=== PATIENT | male | born 1990 | race Hispanic/Latino ===

== ENCOUNTER 2020-09-03 18:36 | Inpatient (IN) | payer SELFPAY ==
[2020-09-03 21:14] LABS: Hematocrit 45.4 % (39.6-49.0); MPV 8.2 fL (7.6-11.3); RBC Red Blood Cell Count 5.32 M/uL (4.33-5.43)
[2020-09-03 21:22] LABS: Protime INR 0.97
[2020-09-03 21:28] LABS: ALT/SGPT 112 U/L (12-78); AST/SGOT 56 U/L (15-37); Albumin 3.2 g/dL (3.4-5.0); Alkaline Phosphatase 109 U/L (45-117); BUN Blood Urea Nitrogen 7 mg/dL (7-18); Bicarbonate 25 mmol/L (21-32); Bilirubin Direct 13.2 mg/dL (0-0.2); Glucose Level 135 mg/dL (74-106); Lipase 236 U/L (73-393); Potassium 3.5 mmol/L (3.5-5.1); Protein, Total 7.1 g/dL (6.4-8.2); Sodium Level 136 mmol/L (136-145)
[2020-09-03 21:32] LABS: Bilirubin Total 15.5 mg/dL (0.2-1.0)
[2020-09-03 22:44] LABS: Urine Blood Negative (Negative); Urine Glucose Negative (Negative); Urine Protein Negative (Negative)
[2020-09-03 22:55] LABS: Blood Morphology Comment NOTED (NOT SEEN); Platelet Estimate ADEQ; Target Cells 1+
--- NOTE | 2020-09-03 23:23 | ER ---
Nurse's Notes [facility] Name: Leighton Beasley Jr Age: 30 yrs Sex: Male : 1990 Arrival Date: 09/03/2020 Time: 18:39 Bed 8 Private MD: Diagnosis: Unspecified jaundice Presentation: 09/03 18:59 Chief complaint: Patient states: Noticed yellow eyes for 1 week. Yellow skin for 4 ll1 days. No abd pain, but some nausea. States he drinks a lot on the weekends. Recently on steroids, testerone, estrogen blockers, but stopped them after turning yellow. Coronavirus screen: Client denies travel out of the [place] in the last 14 days. At this time, the client does not indicate any symptoms associated with coronavirus-19. Ebola Screen: Patient denies travel to an Ebola-affected area in the 21 days before illness onset. Initial Sepsis Screen: Does the patient meet any 2 criteria? HR > 90 bpm. No. Patient's initial sepsis screen is negative. Does the patient have a suspected source of infection? No. Patient's initial sepsis screen is negative. Risk Assessment: Do you want to hurt yourself or someone else? Patient reports no desire to harm self or others. Onset of symptoms was August 27, 2020. 18:59 Method Of Arrival: Ambulatory ll1 18:59 Acuity: BROOKE 3 ll1 Historical: - Allergies: 19:03 No Known Allergies; ll1 - PMHx: 19:03 None; ll1 - PSHx: 19:03 None; ll1 - Immunization history:: Flu vaccine is not up to date. - Social history:: Smoking status: Patient denies any tobacco usage or history of. - Family history:: not pertinent. - Hospitalizations: : No recent hospitalization is reported. Screenin:55 Abuse screen: Denies threats or abuse. Nutritional screening: No deficits noted. ea Tuberculosis screening: No symptoms or risk factors identified. Fall Risk None identified. Assessment: 21:12 General: Appears comfortable, Behavior is calm, cooperative. Pain: Denies pain. Neuro: rv Level of Consciousness is awake, alert, obeys commands, Oriented to person, place, time, situation. Cardiovascular: Patient's skin is warm and dry. Respiratory: Airway is patent Respiratory effort is even, unlabored. Derm: Skin is jaundiced. 22:31 Reassessment: Patient and/or family updated on plan of care and expected duration. Pain ea level reassessed. Pt alert and oriented x 3. Respirations even and unlabored, chest expansions even and symmetrical. 22:50 Reassessment: Pt taken to CT. ea Vital Signs: 18:59 BP 165 / 105; Pulse 99; Resp 17; Temp 98.6; Pulse Ox 99% ; Weight 96.62 kg; Height 5 ll1 ft. 6 in. (167.64 cm); Pain 0/10; 22:50 BP 134 / 74; Pulse 89; Resp 18; Pulse Ox 98% ; ea 18:59 Body Mass Index 34.38 (96.62 kg, 167.64 cm) ll1 ED Course: 18:39 Patient arrived in ED. as 19:02 Triage completed. ll1 19:03 Arm band placed on. ll1 20:45 Low Gallegos MD is Attending Physician. rn 20:55 Alda Hawkins RN is Primary Nurse. ea 20:55 Patient has correct armband on for positive identification. Bed in low position. Call ea light in reach. Side rails up X 1. Adult w/ patient. 21:04 Inserted saline lock: 20 gauge in right antecubital area, using aseptic technique. rv Blood collected. 21:04 Initial lab(s) drawn, by me, sent to lab. rv 23:01 CT Abd/Pelvis - IV Contrast Only In Process Unspecified. EDMS 23:22 Sunil Gomes DO is Hospitalizing Provider. rn 09/04 02:46 No provider procedures requiring assistance completed. IV is patent, with fluids ea infusing freely, Patient admitted, IV remains in place. Administered Medications: 09/03 21:11 Drug: NS 0.9% 1000 ml Route: IV; Rate: 1000 ml; Site: right antecubital; rv 09/04 02:48 Follow up: IV Status: Completed infusion; IV Intake: 1000ml ea Intake: 02:48 IV: 1000ml; Total: 1000ml. ea Outcome: 09/03 23:23 Decision to Hospitalize by Provider. rn 09/04 02:47 Admitted to Tele accompanied by tech, via wheelchair, room 401, Other sbar Report ea called to AREN OCHOA Condition: good Instructed on the need for admit. 02:51 Patient left the ED. ea Signatures: Dispatcher [employer] Nichole Anne Roman, MD MD rn Antunez, Elena RN RN Chapin Bolton RN RN rv Lewis, Lynsay RN RN ll1
--- NOTE | 2020-09-03 23:23 | EDPHYS ---
Physician Documentation [facility] Name: Leighton Beasley Jr Age: 30 yrs Sex: Male : 1990 Arrival Date: 09/03/2020 Time: 18:39 Bed 8 Private MD: ED Physician Low Gallegos HPI: 09/03 21:29 This 30 yrs old Male presents to ER via Ambulatory with complaints of Jaundice.rn 21:29 Reports taking anabolic steroids and estrogen meliza for weeks, noticed 1 week ago rn that eyes were turning yellow. No other complaints other than occasional nausea. Denies tylenol overdose. Reports drinks occasionally on weekends, sometimes large volume.. Onset: The symptoms/episode began/occurred 1 week(s) ago. Severity of symptoms: At their worst the symptoms were mild in the emergency department the symptoms are unchanged. The patient has not experienced similar symptoms in the past. The patient has not recently seen a physician. Historical: - Allergies: 19:03 No Known Allergies; ll1 - PMHx: 19:03 None; ll1 - PSHx: 19:03 None; ll1 - Immunization history:: Flu vaccine is not up to date. - Social history:: Smoking status: Patient denies any tobacco usage or history of. - Family history:: not pertinent. - Hospitalizations: : No recent hospitalization is reported. ROS: 21:29 Constitutional: Negative for fever, chills, and weight loss, Eyes: + jaundice Neck: rn Negative for injury, pain, and swelling, Cardiovascular: Negative for chest pain, palpitations, and edema, Respiratory: Negative for shortness of breath, cough, wheezing, and pleuritic chest pain, Abdomen/GI: Negative for abdominal pain, vomiting, diarrhea, and constipation, Back: Negative for injury and pain, : + dark urine MS/Extremity: Negative for injury and deformity, Skin: Negative for injury, rash, and discoloration, Neuro: Negative for headache, weakness, numbness, tingling, and seizure. Exam: 21:31 Constitutional: This is a well developed, well nourished patient who is awake, alert, rn and in no acute distress. Head/Face: Normocephalic, atraumatic. Eyes: + scleral icterus ENT: + jaundice under tongue Cardiovascular: Regular rate and rhythm. No pulse deficits. Respiratory: No increased work of breathing, no retractions or nasal flaring. Abdomen/GI: soft, non-tender Skin: Warm, dry, + jaundice head and torso, none on legs MS/ Extremity: Pulses equal, no cyanosis. Neurovascular intact. Full, normal range of motion. Equal circumference. Neuro: Awake and alert, GCS 15, oriented to person, place, time, and situation. Cranial nerves II-XII grossly intact. Motor strength 5/5 in all extremities. Sensory grossly intact. Cerebellar exam normal. Normal gait. Vital Signs: 18:59 BP 165 / 105; Pulse 99; Resp 17; Temp 98.6; Pulse Ox 99% ; Weight 96.62 kg; Height 5 ll1 ft. 6 in. (167.64 cm); Pain 0/10; 22:50 BP 134 / 74; Pulse 89; Resp 18; Pulse Ox 98% ; ea 18:59 Body Mass Index 34.38 (96.62 kg, 167.64 cm) ll1 MDM: 20:45 Patient medically screened. rn 23:21 Differential Diagnosis jaundice, drinking related vs anabolic steroids vs hepatitis 2/2 rn injections. Data reviewed: vital signs, nurses notes, lab test result(s), and as a result, I will admit patient. Counseling: I had a detailed discussion with the patient and/or guardian regarding: the historical points, exam findings, and any diagnostic results supporting the discharge/admit diagnosis, lab results, the need for further work-up and treatment in the hospital. Admission orders: after a detailed discussion of the patient's condition and case, the admit orders are written by me. ED course: Pt with total bili 15, likely 2/2 anabolic steroids, but also a drinker, stable vitals, stopped steroids 1 week ago, will admit for serial studies, return of hep panel, and GI consultation. . 09/03 20:56 Order name: Basic Metabolic Panel rn 09/03 20:56 Order name: CBC with Diff rn 09/03 20:56 Order name: Hepatic Function; Complete Time: 22:39 rn 09/03 20:56 Order name: Lipase; Complete Time: 22:40 rn 09/03 20:56 Order name: Hepatitis Panel rn 09/03 20:56 Order name: Acetaminophen; Complete Time: 22:40 rn 09/03 20:56 Order name: PT-INR; Complete Time: 22:40 rn 09/03 20:57 Order name: Basic Metabolic Panel; Complete Time: 22:40 [facility] 09/03 20:57 Order name: CBC with Automated Diff; Complete Time: 23:11 [facility] 09/03 21:57 Order name: Manual Differential; Complete Time: 23:11 [facility] 09/03 22:39 Order name: CT Abd/Pelvis - IV Contrast Only rn 09/03 22:43 Order name: Urine Dipstick-Ancillary; Complete Time: 22:54 [facility] 09/04 02:11 Order name: SARS-COV-[address] [facility] 09/03 20:56 Order name: IV Start; Complete Time: 21:11 rn 09/03 20:56 Order name: Labs collected and sent; Complete Time: 21:11 rn 09/03 21:31 Order name: Urine Dipstick-Ancillary (obtain specimen); Complete Time: 23:22 rn Administered Medications: 21:11 Drug: NS 0.9% 1000 ml Route: IV; Rate: 1000 ml; Site: right antecubital; 09/04 02:48 Follow up: IV Status: Completed infusion; IV Intake: 1000ml ea Disposition: 09/03/20 23:23 Hospitalization ordered by Sunil Gomes for Observation. Preliminary diagnosis is Unspecified jaundice. - Bed requested for Telemetry/MedSurg (Inpatient). - Status is Observation. ea - Condition is Stable. - Problem is new. - Symptoms are unchanged. Signatures: Dispatcher [employer] [facility] Kathie Gutierres RN RN mw Nieto, Roman, MD MD rn Antunez, Elena RN Chapin Gallardo ea, RN RN rv Lewis, Lynsay RN RN ll1 Corrections: (The following items were deleted from the chart) 09/03 21:31 21:29 Constitutional: Negative for fever, chills, and weight loss, Eyes: + jaundice rn Neck: Negative for injury, pain, and swelling, Cardiovascular: Negative for chest pain, palpitations, and edema, Respiratory: Negative for shortness of breath, cough, wheezing, and pleuritic chest pain, Abdomen/GI: Negative for abdominal pain, vomiting, diarrhea, and constipation, Back: Negative for injury and pain, MS/Extremity: Negative for injury and deformity, Skin: Negative for injury, rash, and discoloration, Neuro: Negative for headache, weakness, numbness, tingling, and seizure, rn 09/04 00:46 09/03 23:58 CORONAVIRUS+MR.LAB.BRZ ordered. EDMS EDMS 09/04 02:16 09/03 23:23 Hospitalization Ordered by Sunil Gomes DO for Observation. Preliminary ea diagnosis is Unspecified jaundice. Bed requested for Telemetry/MedSurg (observation). Status is Observation. Condition is Stable. Problem is new. Symptoms are unchanged. rn 09/04 02:32 02:16 09/03/2020 23:23 Hospitalization Ordered by Sunil Gomes DO for Observation. mw Preliminary diagnosis is Unspecified jaundice. Bed requested for [facility] ER HOLD. Status is Observation. Condition is Stable. Problem is new. Symptoms are unchanged. ea 02:51 02:32 09/03/2020 23:23 Hospitalization Ordered by Sunil Gomes DO for Observation. ea Preliminary diagnosis is Unspecified jaundice. Bed requested for Telemetry/MedSurg (Inpatient). Status is Observation. Condition is Stable. Problem is new. Symptoms are unchanged. mw
[2020-09-04] MEDS: NA CHLORIDE 0.9% 1,000 ML IV SCH ×3 (02:14→14:20)
[2020-09-04] MEDS ORDERED: ONDANSETRON 4 MG/2 ML VIAL IV PRN (02:14)
--- NOTE | 2020-09-04 02:36 | P.HP ---
Certification for Inpatient Patient admitted to: Inpatient With expected LOS: >2 Midnights Patient will require the following post-hospital care: None Practitioner: I am a practitioner with admitting privileges, knowledge of patient current condition, hospital course, and medical plan of care. Services: Services provided to patient in accordance with Admission requirements found in Title 42 Section 412.3 of the Code of Federal Regulations Patient History Date of Service: 09/04/20 Reason for admission: Jaundice, liver injury History of Present Illness: 30-year-old otherwise healthy male presents emergency department for jaundice. Patient reports that he noticed discoloration of his sclera and skin approximately 1 week prior. Patient does admit to using anabolic steroids for the last approximately 6 weeks prior to quitting 1 week ago. Patient admits to drinking on the weekends approximately 7 beers per day denies IV drug use or other risk factors for hepatitis. Evaluation in the emergency department significant for mild elevation in AST/ALT 56 and 112 respectively T bili significantly elevated 15.5 d bili 13.2 alk-phos 109 CBC within normal limits INR 0.97. CT abdomen pelvis negative for any acute findings. ED provider wishes to admit for further evaluation and management. 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 - Family History Family History: Reviewed- Non-Contributory - Social History Smoking Status: Never smoker Alcohol use: Yes CD- Drugs: No Caffeine use: Yes Place of Residence: Home Review of Systems 10-point ROS is otherwise unremarkable Gastrointestinal: Other (GERD) Integumentary: Jaundice, As per HPI Physical Examination - Physical Exam General: Alert, In no apparent distress HEENT: Atraumatic, PERRLA, Other (Mucous membranes pale), Scleral icterus Neck: Supple, 2+ carotid pulse no bruit, No LAD Respiratory: Clear to auscultation bilaterally, Normal air movement Cardiovascular: Regular rate/rhythm, Normal S1 S2 Gastrointestinal: Normal bowel sounds, No tenderness Musculoskeletal: No tenderness Integumentary: No rashes, Other (Skin appears jaundiced) Neurological: Normal gait, Normal speech, Normal strength at 5/5 x4 extr, Normal tone, Normal affect Lymphatics: No axilla or inguinal lymphadenopathy - Studies Laboratory Data (last 24 hrs) 09/03/20 21:04: PT 11.1, INR 0.97 09/03/20 21:04: WBC 7.50, Hgb 15.7, Hct 45.4, Plt Count 342 09/03/20 21:04: Sodium 136, Potassium 3.5, BUN 7, Creatinine 1.06, Glucose 135 H, Total Bilirubin 15.5 H*, AST 56 H, ALT 112 H, Alkaline Phosphatase 109, Lipase 236 Assessment and Plan - Plan Assessment Liver injury, jaundice likely secondary to anabolic steroid use Plan Liver injury, jaundice likely secondary to anabolic steroid use: CT abdomen pelvis without acute findings, no fever, elevated blood cell count. Will obtain right upper quadrant ultrasound for evaluation of gallbladder/liver. Hepatitis/HIV panel sent off. Patient instructed to attempt to obtain more information about the type of anabolic steroids that he was taking, does report that he is taking testosterone, estrogen blockers and other unknown medications for approximately 6 weeks and reports that the jaundice began approximately 1 week ago. Gastroenterology consulted, will repeat CMP, INR levels. DVT prophylaxis with Lovenox. Appreciate further input from GI. Discharge Plan: Home Plan to discharge in: 48 Hours - Advance Directives Does patient have a Living Will: No Does patient have a Durable POA for Healthcare: No - Code Status/Comfort Care Code Status Assessed: Yes (Full code) Critical Care: No Time Spent Managing Pts Care (In Minutes): 55
[2020-09-04] MEDS ORDERED: NA CHLORIDE 0.9% 1,000 ML ONE (02:39)
[2020-09-04 02:47] VITALS: O2SAT 99
[2020-09-04 03:20] VITALS: BMI 34.3
[2020-09-04 06:44] LABS: Protime INR 0.97
[2020-09-04 07:07] LABS: ALT/SGPT 99 U/L (12-78); AST/SGOT 50 U/L (15-37); Albumin 2.7 g/dL (3.4-5.0); Alkaline Phosphatase 101 U/L (45-117); BUN Blood Urea Nitrogen 5 mg/dL (7-18); Bicarbonate 26 mmol/L (21-32); Glucose Level 95 mg/dL (74-106); HDL Cholesterol 8 mg/dL (40-60); Magnesium 2.6 mg/dL (1.8-2.4); Protein, Total 6.3 g/dL (6.4-8.2); Sodium Level 138 mmol/L (136-145)
[2020-09-04 07:10] LABS: Bilirubin Total 14.5 mg/dL (0.2-1.0)
[2020-09-04 07:12] LABS: MPV 8.6 fL (7.6-11.3); RBC Red Blood Cell Count 5.04 M/uL (4.33-5.43)
[2020-09-04 07:23] LABS: LDL, Direct 227 mg/dL (100-129)
[2020-09-04] MEDS ORDERED: ENOXAPARIN 40 MG/0.4 ML SQ SCH (09:00)
[2020-09-04 09:19] LABS: Anisocytosis SLIGHT; Blood Morphology Comment NOTED (NOT SEEN); Platelet Estimate ADEQ; Platelets, Giant PRESENT; Poikilocytosis SLIGHT
--- NOTE | 2020-09-04 09:20 | RAD REPORT ---
EXAM DESCRIPTION: US - Abdomen Exam Limited - 09/04/2020 8:50 am CLINICAL HISTORY: Eval Liver/gallbladder, jaundice COMPARISON: Abdomen Pelvis W Contrast dated 09/03/2020 FINDINGS: A few punctate echogenic nonshadowing foci are seen along the gallbladder wall believed to be polyps rather than adherent stones or sludge. No mobile gallstones confirmed. Gallbladder wall is thickened. The gallbladder is not fully distended which may account focal wall thickening. No perich olecystic fluid. Suspected polyps are under 5 mm in size. No common duct stone or biliary tree dilatation identified. Partially imaged liver is 15 cm in size. Spleen is 12 cm. Liver and spleen parenchyma is not fully as sessed on this study. IMPRESSION: Contracted gallbladder shows wall thickening that may be artifact of contraction or an i ndication of chronic gallbladder disease. Punctate echogenic foci along the wall are believed to be small polyps. No duct stone or biliary tree dilatation.
--- NOTE | 2020-09-04 13:18 | P.DS ---
Admission Date: 09/04/20 Discharge Date: 09/04/20 Primary Care Provider: none Disposition: ROUTINE DISCHARGE Discharge Condition: GOOD Reason for Admission: Jaundice, liver injury Consultations: GI-Dr. Aaron Procedures: COVID: Negative CT scan: Unremarkable. ABUS: FINDINGS: A few punctate echogenic nonshadowing foci are seen along the gallbladder wall believed to be polyps rather than adherent stones or sludge. No mobile gallstones confirmed. Gallbladder wall is thickened. The gallbladder is not fully distended which may account focal wall thickening. No pericholecystic fluid. Suspected polyps are under 5 mm in size. No common duct stone or biliary tree dilatation identified. Partially imaged liver is 15 cm in size. Spleen is 12 cm. Liver and spleen parenchyma is not fully assessed on this study. IMPRESSION: Contracted gallbladder shows wall thickening that may be artifact of contraction or an indication of chronic gallbladder disease. Punctate echogenic foci along the wall are believed to be small polyps. No duct stone or biliary tree dilatation. MRI of AB: MRCP: Medical Problem List: Painless jaundice with elevated liver function likely secondary to anabolic steroid use Mixed hyperlipidemia Brief History of Present Illness: 30-year-old otherwise healthy male presents emergency department for painless jaundice. Patient reports that he noticed discoloration of his sclera and skin approximately 1 week prior. Patient does admit to using anabolic steroids for the last approximately 6 weeks prior to quitting 1 week ago. Patient admits to drinking on the weekends approximately 7 beers per day denies IV drug use or other risk factors for hepatitis. Evaluation in the emergency department significant for mild elevation in AST/ALT 56 and 112 respectively T bili significantly elevated 15.5 d bili 13.2 alk-phos 109 CBC within normal limits INR 0.97. CT abdomen pelvis negative for any acute findings. Patient ad mitted for further evaluation and treatment. Hospital Course: Patient presented with painless jaundice. Bilirubin elevated with noted elevated liver function. This was likely secondary to anabolic steroid use. Patient had been using anabolic steroids over the past several weeks. He discontinued the steroid last week. Patient also found with mixed hyperlipidemia. CT abdomen unremarkable. Abdominal ultrasound also showed no evidence of obstructive biliary dysfunction. Case discussed in detail with GI. GI recommended MRI of abdomen and MRCP. Both unremarkable. No further intervention required. Patient will be discharged home. Recommend to recheck labCMP at least once a week to make sure that levels are slowly improving. Patient should follow-up with GI and establish care with a PCP to further monitor lab closely. Hepatitis panel, HIV panel pending at discharge. This can be followed up with PCP. Education on risks of using anabolic steroids pro vided. Education on hyperbilirubinemia also provided. Vital Signs/Physical Exam: Temp Pulse Resp BP Pulse Ox 98.1 F 104 H 18 156/89 H 100 09/04/20 12:00 09/04/20 12:00 09/04/20 12:00 09/04/20 12:00 09/04/20 12:00 General: Alert, In no apparent distress, Oriented x3, Cooperative HEENT: Atraumatic, Scleral icterus Neck: Supple Respiratory: Clear to auscultation bilaterally, Normal air movement Cardiovascular: Normal pulses, Regular rate/rhythm Gastrointestinal: Normal bowel sounds, No ascites, No tenderness, No masses, No rebound, No guarding Musculoskeletal: No erythema, No tenderness, No warmth Integumentary: No tenderness/swelling, Other (Patient appears jaundice) Neurological: Normal speech, Normal strength at 5/5 x4 extr, Normal tone, Normal affect Laboratory Data at Discharge: WBC 5.60 K/uL (4.3-10.9) D 09/04/20 06:01 Hgb 15.0 g/dL (13.6-17.9) 09/04/20 06:01 Hct 43.0 % (39.6-49.0) 09/04/20 06:01 Plt Count 342 K/uL (152-406) 09/04/20 06:01 PT 11.1 SECONDS (9.5-12.5) 09/04/20 06:01 INR 0.97 09/04/20 06:01 Sodium 138 mmol/L (136-145) 09/04/20 06:01 Potassium 4.0 mmol/L (3.5-5.1) 09/04/20 06:01 BUN 5 mg/dL (7-18) L 09/04/20 06:01 Creatinine 1.03 mg/dL (0.55-1.3) 09/04/20 06:01 Glucose 95 mg/dL (74-106) 09/04/20 06:01 Magnesium 2.6 mg/dL (1.8-2.4) H 09/04/20 06:01 Total Bilirubin 14.5 mg/dL (0.2-1.0) H* 09/04/20 06:01 AST 50 U/L (15-37) H 09/04/20 06:01 ALT 99 U/L (12-78) H 09/04/20 06:01 Alkaline Phosphatase 101 U/L (45-117) 09/04/20 06:01 Triglycerides 470 mg/dL (<150) H 09/04/20 06:01 Cholesterol 282 mg/dL (<200) H 09/04/20 06:01 LDL Cholesterol Direct 227 mg/dL (100-129) H 09/04/20 06:01 HDL Cholesterol 8 mg/dL (40-60) L 09/04/20 06:01 Cholesterol/HDL Ratio 35.25 09/04/20 06:01 Lipase 236 U/L (73-393) 09/03/20 21:04 Home Medications: NK [No Home Meds] 09/04/20 Physician Discharge Instructions: Patient presented with painless jaundice. Bilirubin elevated with noted elevated liver function. This was likely secondary to anabolic steroid use. Patient had been using anabolic steroids over the past several weeks. He discontinued the steroid last week. Patient also found with mixed hyperlipidemia. CT abdomen unremarkable. Abdominal ultrasound also showed no evidence of obstructive biliary dysfunction. Case discussed in detail with GI. GI recommended MRI of abdomen and MRCP. Both unremarkable. No further intervention required. Patient will be discharged home. Recommend to recheck labCMP at least once a week to make sure that levels are slowly improving. Patient should follow-up with GI and establish care with a PCP to further monitor lab closely. Hepatitis panel, HIV panel pending at discharge. This can be followed up with PCP. Education on risks of using anabolic steroids provided. Education on hyperbilirubinemia also provided. Diet: AHA Activity: Ad jennifer Followup: NONE,NONE [Primary Care Provider] - Time spent managing pt's care (in minutes): 55
--- NOTE | 2020-09-04 13:35 | RAD REPORT ---
EXAM DESCRIPTION: CT - Abdomen Pelvis W Contrast - 09/04/2020 6:42 am COMPARISON: None. CLINICAL HISTORY: [facility] jaundice TECHNIQUE: CT of the abdomen and pelvis was acquired with IV contrast material. Coronal and sagitt al reconstructions were obtained. Automated exposure control was utilized on this examination as a dose lowering technique. FINDINGS: Lung bases: Clear. Liver: The liver is normal and measures 15.3 cm midclavicular line. Gallbladder and biliary: Decompressed gallbladder. Unremarkable biliary tree. Pancreas: Normal. Spleen: Normal. Adrenal glands: Normal adrenal glands. Kidneys: Normal kidneys Stomach and Small Bowel: The stomach and small bowel are normal. Urinary bladder: Mild bladder wall thickening is likely due to decompression. Prostate/Male Urogenital: Normal. Colon and Appendix: The colon is unremarkable. No evidence of appendicitis. Retroperitoneum and lymph nodes: Normal. Vascular: Normal. Peritoneal cavity: No ascites or free air. Musculoskeletal and soft tissues: Soft tissues are unremarkable. No aggressive bone lesions. No com pression fracture. IMPRESSION: No acute intra-abdominal abnormality. Electronically signed by: Parveen May MD 09/03/2020 11:13 PM CDT Due to temporary technical issues with the PACS/Fluency reporting system, reports are being signed by the in house radiologists without review as a courtesy to insure prompt reporting. The interpreting radiologist is fully responsible for the content of the report.
--- NOTE | 2020-09-04 20:10 | RAD REPORT ---
EXAM DESCRIPTION: MRICholangiogram09/04/2020 7:55 pm CLINICAL HISTORY: Painless jaundice COMPARISON: CT September 03 ultrasound September 04, 2020 TECHNIQUE: Magnetic resonance cholangiogram was performed.3D MIP reconstruction performed FINDINGS: A filling defect within the gallbladder is not seen. The gallbladder is contracted. The biliary tree is normal caliber without a filling defect. Pancreatic duct is normal caliber IMPRESSION: Contracted gallbladder. Otherwise unremarkable exam
[2020-09-04 20:16] VITALS: BP 133/77; TEMP 97.9
--- NOTE | 2020-09-04 20:17 | RAD REPORT ---
EXAM DESCRIPTION: MRI - Abdomen WWo Cont - 09/04/2020 7:54 pm CLINICAL HISTORY: Painless jaundice COMPARISON: April 29, 2018 ultrasound TECHNIQUE: Axial and coronal magnetic resonance imaging of the liver performed. 20 cc MultiHance adm inistered intravenously FINDINGS: The liver is normal size and signal. The gallbladder is contracted The biliary tree is normal caliber. Portal vein is patent. The pancreas is normal size and signal. Pancreatic duct normal caliber. Spleen, adrenals and kidneys appear unremarkable. IMPRESSION: The gallbladder is contracted. Otherwise unremarkable exam
[2020-09-06 15:54] LABS: HIV AG/AB 4TH GEN Non-reactive (Non-reactive)
[2020-09-06 20:17] LABS: HBsAG Nonreactive (Nonreactive)
== END 2020-09-04 21:10 | disposition home or self-care (01) | DRG 443 ==
LOC: ER 18:36 → ERHOLD 09-04 00:50 → 4TH 09-04 02:55
PROVIDERS: ADMIT Family Medicine; ATTEND Family Medicine
DX: S36.119A Unspecified injury of liver, initial encounter (principal); E78.2 Mixed hyperlipidemia; K21.9 Gastro-esophageal reflux disease without esophagitis; T38.7X5A Adverse effect of androgens and anabolic congeners, initial encounter; R79.89 Other specified abnormal findings of blood chemistry; Z20.822 Contact with and (suspected) exposure to COVID-19
CPT/HCPCS: 36415; 74177; 74181; 74183; 76705; 80048; 80053; 80061; 80074; 80076; 80329; 81003; 82390; 83690; 83735; 84439; 84443; 85025; 85610; 86038; 86255; 87389; 96360; 96361; 99285; A9577; J1650; J7030; Q9967; U0003

== ENCOUNTER 2022-06-15 22:05 | Emergency (ER) | payer SELFPAY ==
--- NOTE | 2022-06-16 00:02 | EDPHYS ---
Physician Documentation [facility] Name: Leighton Beasley Jr Age: 32 yrs Sex: Male : 1990 Arrival Date: 06/15/2022 Time: 22:07 Bed 26 Private MD: ED Physician Zachery Kelly HPI: 06/15 23:55 This 32 yrs old Male presents to ER via Ambulatory with complaints of Possible marlys hernia. 23:55 The patient presents to the emergency department with pain in the rectal area, that is marlys mild. Onset: The symptoms/episode began/occurred 2 day(s) ago. Context: the patient has no known special context relating to the rectal area complaint(s). Modifying factors: The symptoms are alleviated by remaining still, The symptoms are aggravated by bowel movement, sitting position. Associate signs and symptoms: The patient has no apparent associated signs or symptoms. The patient has not experienced similar symptoms in the past. Historical: - Allergies: 22:31 No Known Allergies; bb - Home Meds: 22:31 None [Active]; bb - PMHx: 22:31 None; bb - PSHx: 22:31 None; bb - Immunization history:: Client reports having NOT received the Covid vaccine. - Social history:: Smoking status: Patient denies any tobacco usage or history of. ROS: 23:58 Constitutional: Negative for fever, chills, and weight loss, Eyes: Negative for injury, marlys pain, redness, and discharge, ENT: Negative for injury, pain, and discharge, Neck: Negative for injury, pain, and swelling, Cardiovascular: Negative for chest pain, palpitations, and edema, Respiratory: Negative for shortness of breath, cough, wheezing, and pleuritic chest pain, Back: Negative for injury and pain, : Negative for injury, bleeding, discharge, and swelling, MS/Extremity: Negative for injury and deformity, Skin: Negative for injury, rash, and discoloration, Neuro: Negative for headache, weakness, numbness, tingling, and seizure, Psych: Negative for depression, anxiety, suicide ideation, homicidal ideation, and hallucinations, Allergy/Immunology: Negative for hives, rash, and allergies, Endocrine: Negative for neck swelling, polydipsia, polyuria, polyphagia, and marked weight changes, Hematologic/Lymphatic: Negative for swollen nodes, abnormal bleeding, and unusual bruising. 23:58 Abdomen/GI: Positive for rectal pain. Exam: 23:58 Constitutional: This is a well developed, well nourished patient who is awake, alert, marlys and in no acute distress. Head/Face: Normocephalic, atraumatic. Eyes: Pupils equal round and reactive to light, extra-ocular motions intact. Lids and lashes normal. Conjunctiva and sclera are non-icteric and not injected. Cornea within normal limits. Periorbital areas with no swelling, redness, or edema. ENT: Nares patent. No nasal discharge, no septal abnormalities noted. Tympanic membranes are normal and external auditory canals are clear. Oropharynx with no redness, swelling, or masses, exudates, or evidence of obstruction, uvula midline. Mucous membranes moist. Neck: Trachea midline, no thyromegaly or masses palpated, and no cervical lymphadenopathy. Supple, full range of motion without nuchal rigidity, or vertebral point tenderness. No Meningismus. Chest/axilla: Normal chest wall appearance and motion. Nontender with no deformity. No lesions are appreciated. Cardiovascular: Regular rate and rhythm with a normal S1 and S2. No gallops, murmurs, or rubs. Normal PMI, no JVD. No pulse deficits. Respiratory: Lungs have equal breath sounds bilaterally, clear to auscultation and percussion. No rales, rhonchi or wheezes noted. No increased work of breathing, no retractions or nasal flaring. Back: No spinal tenderness. No costovertebral tenderness. Full range of motion. Male : Normal genitalia with no discharge or lesions. Skin: Warm, dry with normal turgor. Normal color with no rashes, no lesions, and no evidence of cellulitis. MS/ Extremity: Pulses equal, no cyanosis. Neurovascular intact. Full, normal range of motion. Neuro: Awake and alert, GCS 15, oriented to person, place, time, and situation. Cranial nerves II-XII grossly intact. Motor strength 5/5 in all extremities. Sensory grossly intact. Cerebellar exam normal. Normal gait. Psych: Awake, alert, with orientation to person, place and time. Behavior, mood, and affect are within normal limits. 23:58 Abdomen/GI: Inspection: abdomen appears normal, Bowel sounds: normal, Palpation: abdomen is soft and non-tender, Rectal exam: is unremarkable, hemorrhoid(s), external, without bleeding, without inflammation, without thrombosis, without pain, mass, is not appreciated, swelling, is not appreciated, tenderness, is not appreciated, fecal impaction, is not appreciated, the exam is chaperoned by a family member, Liver: no appreciated palpable abnormalities, Hernia: not appreciated. Vital Signs: 22:29 BP 132 / 68; Pulse 81; Resp 16 S; Temp 98.2(O); Pulse Ox 96% ; Weight 111.13 kg (R); bb Height 5 ft. 6 in. (167.64 cm) (R); Pain 0/10; 23:29 BP 135 / 77; Pulse 80; Resp 19; Temp 98.1; Pulse Ox 100% on R/A; Pain 0/10; rv1 22:29 Body Mass Index 39.54 (111.13 kg, 167.64 cm) bb MDM: 22:36 Patient medically screened. [facility] 23:59 Differential diagnosis: hemorrhoids, fissure, abscess, pilonidal cyst. Data reviewed: [facility] vital signs, nurses notes. Consideration of Admission/Observation Escalation of care including admission/observation considered. I considered the following discharge prescriptions or medication management in the emergency department Medications were administered in the Emergency Department. See MAR. Test considered but Not performed: Labs: no labs, no ct a/p. Care significantly affected by the following chronic conditions: none. Administered Medications: No medications were administered Disposition Summary: 06/16/22 00:01 Discharge Ordered Location: Home marlys Problem: new marlys Symptoms: have improved marlys Condition: Stable marlys Diagnosis - Other hemorrhoids - mild marlys - Constipation marlys Followup: marlys - With: Private Physician - When: 2 - 3 days - Reason: Recheck today's complaints, Continuance of care, Re-evaluation by your physician Followup: marlys - With: Osiel Kim DO - When: 2 - 3 days - Reason: Recheck today's complaints, Re-evaluation by your physician Followup: marlys - With: Kalli Gonzalez MD - When: 2 - 3 days - Reason: Recheck today's complaints, Re-evaluation by your physician Discharge Instructions: - Discharge Summary Sheet marlys - Constipation, Adult marlys - Hemorrhoids marlys - High-Fiber Diet marlys - How to Take a Sitz Bath marlys - Constipation, Adult, [id number] marlys - Hemorrhoids, [id number] marlys Forms: - Medication Reconciliation Form marlys - Thank You Letter marlys - Antibiotic Education marlys - Prescription Opioid Use [facility] Prescriptions: - Colace 100 mg Oral Tablet - take 1 tablet by ORAL route every 12 hours; 14 tablet; Refills: 0, Product marlys Selection Permitted - Anusol-HC 25 mg Rectal Suppository - insert 1 suppository by RECTAL route every 12 hours As needed; 10 suppository; [facility] Refills: 0, Product Selection Permitted Signatures: Zachery Kelly MD MD cha Ballard, Brenda, RN RN bb
--- NOTE | 2022-06-16 00:02 | ER ---
Nurse's Notes [facility] Name: Leighton Beasley Jr Age: 32 yrs Sex: Male : 1990 Arrival Date: 06/15/2022 Time: 22:07 Bed 26 Private MD: Diagnosis: Other hemorrhoids-mild;Constipation Presentation: 06/15 22:29 Chief complaint: Patient states: he has a "hernia" in his butt hole he started feeling bb discomfort a day or two ago. Coronavirus screen: At this time, the client does not indicate any symptoms associated with coronavirus-19. Ebola Screen: No symptoms or risks identified at this time. Initial Sepsis Screen: Does the patient meet any 2 criteria? No. Patient's initial sepsis screen is negative. Does the patient have a suspected source of infection? No. Patient's initial sepsis screen is negative. Risk Assessment: Do you want to hurt yourself or someone else? Patient reports no desire to harm self or others. Onset of symptoms was June 15, 2022. 22:29 Method Of Arrival: Ambulatory bb 22:29 Acuity: BROOEK 4 bb Triage Assessment: 22:31 General: Appears in no apparent distress. Behavior is calm, cooperative. Pain: Denies bb pain. Neuro: Level of Consciousness is awake, alert, obeys commands, Oriented to person, place, time, situation. Cardiovascular: Capillary refill < 3 seconds Patient's skin is warm and dry. Respiratory: Respiratory effort is even, unlabored. GI: Reports hemorrhoids. Derm: Skin is pink, warm \\T\\ dry. Musculoskeletal: Circulation, motion, and sensation intact. Historical: - Allergies: 22:31 No Known Allergies; bb - Home Meds: 22:31 None [Active]; bb - PMHx: 22:31 None; bb - PSHx: 22:31 None; bb - Immunization history:: Client reports having NOT received the Covid vaccine. - Social history:: Smoking status: Patient denies any tobacco usage or history of. Screenin:23 [facility] ED Fall Risk Assessment (Adult) History of falling in the last 3 months, bb including since admission No falls in past 3 months (0 pts) Confusion or Disorientation No (0 pts) Intoxicated or Sedated No (0 pts) Impaired Gait No (0 pts) Mobility Assist Device Used No (0 pt) Altered Elimination No (0 pt) Score/Fall Risk Level 0 - 2 = Low Risk Oriented to surroundings, Maintained a safe environment. Abuse screen: Denies threats or abuse. Nutritional screening: No deficits noted. Tuberculosis screening: No symptoms or risk factors identified. Assessment: 23:23 Reassessment: No changes from previously documented assessment. Patient is alert, bb oriented x 3, equal unlabored respirations, skin warm/dry/pink. see triage assessment. Vital Signs: 22:29 BP 132 / 68; Pulse 81; Resp 16 S; Temp 98.2(O); Pulse Ox 96% ; Weight 111.13 kg (R); bb Height 5 ft. 6 in. (167.64 cm) (R); Pain 0/10; 23:29 BP 135 / 77; Pulse 80; Resp 19; Temp 98.1; Pulse Ox 100% on R/A; Pain 0/10; rv1 22:29 Body Mass Index 39.54 (111.13 kg, 167.64 cm) ED Course: 22:07 Patient arrived in ED. jj6 22:31 Triage completed. 22:31 Arm band placed on Patient placed in waiting room, Patient notified of wait time. bb Family accompanied patient. 22:36 Zachery Kelly MD is Attending Physician. [facility] 23:23 Patient has correct armband on for positive identification. Bed in low position. Call bb light in reach. Side rails up X 1. Adult w/ patient. 02 00:00 Osiel Kim DO is Referral Physician. [facility] 00:02 Kalli Gonzalez MD is Referral Physician. [facility] 00:19 No provider procedures requiring assistance completed. Patient did not have IV access lg3 during this emergency room visit. Administered Medications: No medications were administered Medication: 02 23:23 VIS not applicable for this client. bb Outcome: 06/16 00:01 Discharge ordered by . marlys 00:19 Discharged to home ambulatory. lg3 00:19 Condition: stable 00:19 Discharge instructions given to patient, Instructed on discharge instructions, follow up and referral plans. medication usage, Demonstrated understanding of instructions, follow-up care, medications, Prescriptions given X 2. 00:19 Patient left the ED. lg3 Signatures: Zachery Kelly MD MD cha Ballard, Brenda, RN RN Heather Villarreal RN RN lg3 Danay Cordero jj6 Elissa Duran [facility]
[2022-06-16 00:30] VITALS: BP 135/77; TEMP 98.1; O2SAT 100
== END 2022-06-16 00:19 | disposition home or self-care (01) ==
LOC: ER 22:05
DX: K64.8 Other hemorrhoids (principal); K59.00 Constipation, unspecified
CPT/HCPCS: 99282

== ENCOUNTER 2024-04-20 17:43 | Emergency (ER) | payer SELFPAY ==
--- NOTE | 2024-04-20 19:58 | RAD REPORT ---
EXAMINATION: US LEFT LOWER EXTREMITY VENOUS DOPPLER CLINICAL INDICATION: LLE DVT TECHNIQUE: Complete bilateral duplex sonography of the LEFT lower extremity veins was performed. The examination included compression for vein patency, color Doppler imaging and flow augmentation in response to distal compression of the distal external iliac, common femoral, femoral, popliteal, tibi al, and great and small saphenous veins. COMPARISON: No prior exam. FINDINGS: Duplex sonography testing of the veins of the LEFT lower extremity was performed. Color flow imaging shows all veins to be compressible with [id number] color filling. Pulsatile and phasic flow is present within all lower extremity deep and superficial veins examined. IMPRESSION: There is no deep vein or superficial vein thrombosis.
--- NOTE | 2024-04-20 20:15 | ER ---
Nurse's Notes [facility] Name: Leighton Beasley Jr Age: 34 yrs Sex: Male : 1990 Arrival Date: 04/20/2024 Time: 17:43 Bed 10 Private MD: Diagnosis: Cellulitis of left lower limb Presentation: 04/20 18:21 Chief complaint: Patient states: he has been having back and leg pain for approx a ap3 week. patient also reports left foot/ankle swelling. patient currently rates his pain as a 2/10 on the pain scale. patient reports improvement on the back pain after being adjusted by the chiropractor. 18:23 Coronavirus screen: At this time, the client does not indicate any symptoms associated ap3 with coronavirus-19. Ebola Screen: No symptoms or risks identified at this time. Initial Sepsis Screen: Does the patient meet any 2 criteria? No. Patient's initial sepsis screen is negative. Does the patient have a suspected source of infection? No. Patient's initial sepsis screen is negative. Risk Assessment: Do you want to hurt yourself or someone else? Patient reports no desire to harm self or others. Onset of symptoms is unknown. 18:23 Method Of Arrival: Ambulatory ap3 18:23 Acuity: BROOKE 4 ap3 Triage Assessment: 18:25 General: Appears in no apparent distress. Behavior is calm, cooperative, appropriate ap3 for age. Pain: Complains of pain in left foot Pain currently is 2 out of 10 on a pain scale. Quality of pain is described as tightness. Neuro: Level of Consciousness is awake, alert, obeys commands, Oriented to person, place, time, situation, Appropriate for age. Cardiovascular: Patient's skin is warm and dry. Respiratory: Airway is patent Respiratory effort is even, unlabored, Respiratory pattern is regular, symmetrical. Historical: - Allergies: 18:25 No Known Allergies; ap3 - PMHx: 18:25 None; ap3 - Immunization history:: Adult Immunizations unknown. - Infectious Disease History:: Denies. - Social history:: Smoking status: Patient/guardian denies using tobacco. Screenin:25 [facility] ED Fall Risk Assessment (Adult) History of falling in the last 3 months, ap3 including since admission No falls in past 3 months (0 pts) Confusion or Disorientation No (0 pts) Intoxicated or Sedated No (0 pts) Impaired Gait No (0 pts) Mobility Assist Device Used No (0 pt) Altered Elimination No (0 pt) Score/Fall Risk Level 0 - 2 = Low Risk Oriented to surroundings, Maintained a safe environment, Educated pt \T\ family on fall prevention, incl call for assistance when getting out of bed, Assessed \T\ reinforced patient's understanding of fall precautions, Hourly rounding (assess needs \T\ fall precautionary measures) done, Used ambulatory aids as needed (educated on \T\ assisted with), Used gait belt as appropriate. Abuse screen: Denies threats or abuse. Nutritional screening: No deficits noted. Tuberculosis screening: No symptoms or risk factors identified. Assessment: 20:47 Reassessment: Patient and/or family updated on plan of care and expected duration. Pain ha1 level reassessed. Patient is alert, oriented x 3, equal unlabored respirations, skin warm/dry/pink. Patient states symptoms have improved. Vital Signs: 18:23 BP 145 / 99; Pulse 83; Resp 17; Temp 98.1; Pulse Ox 100% ; Weight 111.13 kg; Height 5 ap3 ft. 6 in. ; Pain 2/10; 20:48 BP 140 / 72; Pulse 78; Resp 17 S; Pulse Ox 99% on R/A; ha1 18:23 Body Mass Index 39.54 (111.13 kg, 167.64 cm) ap3 18:23 Pain Scale: Adult ap3 ED Course: 17:45 Patient arrived in ED. ra3 17:53 Kvng Stone MD is Attending Physician. ec2 18:24 Triage completed. ap3 18:26 Arm band placed on right wrist. ap3 19:20 Patient has correct armband on for positive identification. Bed in low position. Call ha1 light in reach. Side rails up X 1. Adult w/ patient. 19:53 Extremity Venous Uni Ltd US In Process Unspecified. EDMS 20:48 No provider procedures requiring assistance completed. Patient did not have IV access ha1 during this emergency room visit. 20:49 Provided Education on: follow ups . ha1 Administered Medications: 20:40 Drug: Trimethoprim-Sulfamethoxazole PO (160 mg-800 mg (DS) 1 tablet PO once Route: PO; ha1 20:50 Follow up: Response: No adverse reaction ha1 Medication: 20:48 VIS not applicable for this client. ha1 Outcome: 20:14 Discharge ordered by . ec2 20:49 Discharged to home ambulatory, with family, ha1 20:49 Condition: stable 20:49 Discharge instructions given to patient, family, Instructed on discharge instructions, follow up and referral plans. medication usage, Demonstrated understanding of instructions, follow-up care, medications, Prescriptions given X 1, 20:50 Patient left the ED. ha1 Signatures: Dispatcher [employer] She Almanzar RN RN ap3 Windy Lam RN RN ha1 Kvng Stone MD MD ec2 Flor Lnyn ra3 Corrections: (The following items were deleted from the chart) 18:24 18:21 Chief complaint: Patient states: he has been having back and leg pain for approx ap3 a week. patient also reports left foot/ankle swelling ap3
--- NOTE | 2024-04-20 20:15 | EDPHYS ---
Physician Documentation [facility] Name: Leighton Beasley Jr Age: 34 yrs Sex: Male : 1990 Arrival Date: 04/20/2024 Time: 17:43 Bed 10 Private MD: ED Physician Kvng Stone HPI: 04/20 18:36 This 34 yrs old Male presents to ER via Ambulatory with complaints of Leg ec2 Swelling. 18:36 Patient arrives today for evaluation of left lower extremity swelling. Patient reports ec2 has been having some back pain as well as some left lower extremity pain which has progressed into left lower extremity swelling. Left back pain has since resolved. Patient reports no falls injuries or trauma. Patient reports no history of DVTs. Denies any fevers or chills or difficulty breathing. Denies any chronic medical problems, denies medication use.. Historical: - Allergies: 18:25 No Known Allergies; ap3 - PMHx: 18:25 None; ap3 - Immunization history:: Adult Immunizations unknown. - Infectious Disease History:: Denies. - Social history:: Smoking status: Patient/guardian denies using tobacco. ROS: 18:36 Constitutional: as per hpi ec2 Exam: 18:36 Constitutional: GEN: NAD Head: atraumatic Eyes: EOMI Ears: External ears are ec2 normal. CV: regular rate LUNGS: no respiratory distress ABD: non-distended SKIN: Left lower extremity with edema appreciated from the dorsum of the foot up to the knee, intact distal neurovascular status. MSK: no evidence of trauma Vital Signs: 18:23 BP 145 / 99; Pulse 83; Resp 17; Temp 98.1; Pulse Ox 100% ; Weight 111.13 kg; Height 5 ap3 ft. 6 in. ; Pain 2/10; 20:48 BP 140 / 72; Pulse 78; Resp 17 S; Pulse Ox 99% on R/A; ha1 18:23 Body Mass Index 39.54 (111.13 kg, 167.64 cm) ap3 18:23 Pain Scale: Adult ap3 MDM: 18:27 Medical Screening Exam initiated ec2 18:36 Data reviewed: vital signs, nurses notes. ED course: Patient arrives today for ec2 evaluation of left lower extremity swelling. Examination revealing for left lower extremity findings as above. Will obtain lab work and ultrasound. Differential diagnosis include processes such as cellulitis, DVT, Saucedo's cyst, doubt fracture given lack of mechanism.. 20:02 ED course: Ultrasound negative for DVT, does have some erythema noted on the anterior ec2 aspect of the tibia, distal, will start on antibiotics for possible cellulitis.. 04/20 18:36 Order name: Extremity Venous Uni Ltd US; Complete Time: 20:01 ec2 Administered Medications: 20:40 Drug: Trimethoprim-Sulfamethoxazole PO (160 mg-800 mg (DS) 1 tablet PO once Route: PO; ha1 20:50 Follow up: Response: No adverse reaction ha1 Disposition Summary: 04/20/24 20:14 Discharge Ordered Notes: Location: Home ec2 Condition: Stable ec2 Diagnosis - Cellulitis of left lower limb ec2 Followup: ec2 - With: Private Physician - When: - Reason: Recheck today's complaints Discharge Instructions: - Discharge Summary Sheet ec2 - Cellulitis, Adult ec2 Forms: - Medication Reconciliation Form ec2 - Antibiotic Education ec2 - Prescription Opioid Use ec2 - Patient Portal Instructions ec2 - Leadership Thank You Letter ec2 Prescriptions: - Bactrim DS 800-160 mg Oral Tablet - take 1 tablet ORAL route every 12 hours for 7 days; 14 tablet; Refills: 0, ec2 Product Selection Permitted Signatures: Dispatcher [employer] She Almanzar RN RN ap3 Windy Lam RN RN ha1 Kvng Stone MD MD ec2 Corrections: (The following items were deleted from the chart) 18:37 18:37 CBC+H.LAB.BRZ ordered. EDMS EDMS 18:37 18:37 BASIC METABOLIC PANEL+C.LAB.BRZ ordered. EDMS EDMS 18:37 18:37 PROTIME (+INR)+COAG.LAB.BRZ ordered. EDMS EDMS 18:37 18:37 PTT, ACTIVATED+COAG.LAB.BRZ ordered. EDMS EDMS 18:37 18:37 Extremity Venous Uni Ltd+US.RAD.BRZ ordered. EDMS EDMS
[2024-04-20] MEDS ORDERED: SMZ./TMP. 800/160 MG TABLET ONE (20:33)
[2024-04-20 20:54] VITALS: TEMP 98.1
[2024-04-20 20:55] VITALS: BP 140/72; O2SAT 99
== END 2024-04-20 20:50 | disposition home or self-care (01) ==
LOC: ER 17:43
DX: L03.116 Cellulitis of left lower limb (principal)
CPT/HCPCS: 93971; 99283